=== PATIENT | male | born 1935 | race Caucasian/White ===

== ENCOUNTER 2022-01-13 20:02 | Inpatient (IN) | payer MEDICARE ==
[~2022-01-13] VITALS: Ht 177.8 cm; Wt 81.6 kg
[2022-01-13 22:48] LABS: BASOPHILS ABSOLUTE AUTO 0.09 K/mm3 (0.00-0.23); BASOPHILS PERCENT AUTO 0 % (0-2); EOSINOPHILS ABSOLUTE AUTO 0.05 K/mm3 (0.00-0.68); EOSINOPHILS PERCENT AUTO 0 % (0-6); Hematocrit 40.9 % (37.0-53.0); Hemoglobin 13.7 g/dL (13.5-17.5); IMMATURE GRAN ABSOLUTE AUTO 0.34 K/mm3 (0.00-0.10); IMMATURE GRAN PERCENT AUTO 2 % (0-1); LYMPHOCYTES ABSOLUTE AUTO 1.46 K/mm3 (0.84-5.20); LYMPHOCYTES PERCENT AUTO 7 % (21-46); MONOCYTES ABSOLUTE AUTO 1.36 K/mm3 (0.16-1.47); MONOCYTES PERCENT AUTO 6 % (4-13); Mean Corpuscular HGB 29.3 pg (26.0-34.0); Mean Corpuscular HGB Conc 33.5 g/dL (31.5-36.5); Mean Corpuscular Volume 88 fL (80-100); Mean Platelet Volume 10.4 fL (9.1-12.4); NEUTROPHILS ABSOLUTE AUTO 18.24 K/mm3 (1.96-9.15); NEUTROPHILS PERCENT AUTO 85 % (41-73); Platelet Count 228 K/mm3 (150-400); RDW Coefficient Variation 13.8 % (11.7-14.2); RDW Standard Deviation 44.3 fL (35.1-46.3); Red Blood Cell Count 4.67 M/mm3 (4.30-5.90); White Blood Cell Count 21.54 K/mm3 (4.00-11.30)
[2022-01-13] MEDS ORDERED: HYDACE10B PO (22:57)
[2022-01-13 23:14] LABS: Albumin, Blood 2.2 g/dL (3.4-5.0); Albumin/Globulin Ratio 0.5 (0.8-1.8); Bilirubin, Total 0.7 mg/dL (0.1-1.0); Bun/Creatinine Ratio 32.2 (12.0-20.0); Calcium, Blood 8.4 mg/dL (8.5-10.1); Creatinine, Blood 1.15 mg/dL (0.60-1.20); Globulin, Blood 4.6 g/dL (2.2-4.0); Potassium, Blood 3.3 mmol/L (3.5-5.5); Thyroid Stimulating Hormone 0.465 uIU/mL (0.360-4.800); Total Protein, Blood 6.8 g/dL (6.4-8.2)
[2022-01-14 03:05] LABS: BASOPHILS ABSOLUTE AUTO 0.07 K/mm3 (0.00-0.23); BASOPHILS PERCENT AUTO 0 % (0-2); EOSINOPHILS ABSOLUTE AUTO 0.09 K/mm3 (0.00-0.68); EOSINOPHILS PERCENT AUTO 0 % (0-6); Hematocrit 40.3 % (37.0-53.0); Hemoglobin 13.6 g/dL (13.5-17.5); IMMATURE GRAN PERCENT AUTO 1 % (0-1); LYMPHOCYTES ABSOLUTE AUTO 1.52 K/mm3 (0.84-5.20); LYMPHOCYTES PERCENT AUTO 7 % (21-46); MONOCYTES ABSOLUTE AUTO 1.37 K/mm3 (0.16-1.47); MONOCYTES PERCENT AUTO 7 % (4-13); Mean Corpuscular HGB 29.5 pg (26.0-34.0); Mean Corpuscular HGB Conc 33.7 g/dL (31.5-36.5); Mean Corpuscular Volume 87 fL (80-100); Mean Platelet Volume 10.3 fL (9.1-12.4); NEUTROPHILS ABSOLUTE AUTO 17.48 K/mm3 (1.96-9.15); NEUTROPHILS PERCENT AUTO 84 % (41-73); Platelet Count 237 K/mm3 (150-400); RDW Coefficient Variation 13.8 % (11.7-14.2); RDW Standard Deviation 44.4 fL (35.1-46.3); Red Blood Cell Count 4.61 M/mm3 (4.30-5.90); White Blood Cell Count 20.73 K/mm3 (4.00-11.30)
[2022-01-14 03:22] LABS: Alanine Aminotransfer (ALT/SGP 84 U/L (12-78); Albumin, Blood 2.1 g/dL (3.4-5.0); Albumin/Globulin Ratio 0.5 (0.8-1.8); Alk Phos 75 U/L (50-136); Anion Gap 6 mmol/L (6-16); Aspartate Aminotrans (AST/SGOT 75 U/L (12-37); Bilirubin, Total 0.5 mg/dL (0.1-1.0); Blood Urea Nitrogen 35 mg/dL (8-24); Bun/Creatinine Ratio 31.2 (12.0-20.0); CHOL/HDL RATIO 4.8; CO2, Blood 34 mmol/L (21-32); Calcium, Blood 8.3 mg/dL (8.5-10.1); Chloride, Blood 98 mmol/L (98-108); Cholesterol 72 mg/dL (50-200); Creatinine, Blood 1.12 mg/dL (0.60-1.20); Globulin, Blood 4.3 g/dL (2.2-4.0); Glomerular Filtration Rate >60 (60-); Glucose, Blood 141 mg/dL (70-99); HDL Cholesterol 15 mg/dL (>39); LDL/HDL RATIO 2.8; Low Density Lipoprotein Chol 41 mg/dL (0-110); Potassium, Blood 3.3 mmol/L (3.5-5.5); Sodium, Blood 138 mmol/L (136-145); Total Protein, Blood 6.4 g/dL (6.4-8.2); Triglycerides 78 mg/dL (30-160); Very Low Density Lipoprot Chol 16 mg/dL (6-32)
--- NOTE | 2022-01-14 04:15 | NUR ---
OYSTER CULTURIST SUMMARY PATIENT IS AN ADMISSION OF THE SHIFT. HE IS ALERT AND ORIENTED. HIS V/S WERE DONE NAD RECORDED. MD INFORMED OF PATIENT ARRIVAL. HISS ASSESSMENT DONE AND CHARTED. HE DOES HAVE WOUND IN THE ANAL REGION PICTURES ARE TAKEN. HE IS KEPT COMFORTABLE, AND ORIENTED TO THE UNIT. SAFETY MEASURES IN PLACE. HE DID NOT HAVE ANY COMPLAINTS IVER NIGHT. HE ALSO STATED HE CANN0T REMEMBER THE [id number] HE TAKES AT HOME. CRITICAL RESULTS WERE DOCUMENTED ON., SEE CHART. WILL CONTINUE TO MONITOR HIM.
--- NOTE | 2022-01-14 16:36 | NUR ---
Pt resting in bed upon arrival. Pt's son and spouse at bedside. Pt extremely hard of hearing. Offered supportive listening and answered questions. Reviewed current plan of care. Family expresses appreciation and requests for hospitalist visit if available. Called and spoke with Dr Dickerson. Relayed request. Palliative Care will remain available.
--- NOTE | 2022-01-14 18:33 | NUR ---
SHIFT SUMMARY NO ACUTE CHANGES THIS SHIFT. PT DENIES ANY CP/PRESSURE/PALIPITATIONS. WHEEZES HEARD T/O. PT GETTING PRN BREATHING TREATMENTS. PT A/O BUT VERY DOUGLAS. HEARING AIDE TO R EAR. FAMILY VISITED THE PT TODAY. VSS. WILL REPORT TO PABLITO NOGUEIRA.
--- NOTE | 2022-01-15 03:18 | NUR ---
TELLER MANAGER SUMMARY PATIENT HAD A FAIR SHIFT. HE IS ORIENTED AND ALERT. CALLS FOR HELP APPROPRIATELY. HE DID NOT LODGE ANY COMPLAINTS OVERNIGHT. HIS YESSY;S ARE STABLE. WILL CONTINUE TO MONITOR HIM.
[2022-01-15 04:56] LABS: Hematocrit 42.3 % (37.0-53.0); Hemoglobin 14.2 g/dL (13.5-17.5); Mean Corpuscular HGB 29.5 pg (26.0-34.0); Mean Corpuscular HGB Conc 33.6 g/dL (31.5-36.5); Mean Corpuscular Volume 88 fL (80-100); Mean Platelet Volume 10.4 fL (9.1-12.4); Platelet Count 291 K/mm3 (150-400); RDW Coefficient Variation 14.1 % (11.7-14.2); RDW Standard Deviation 45.5 fL (35.1-46.3); Red Blood Cell Count 4.81 M/mm3 (4.30-5.90); White Blood Cell Count 17.72 K/mm3 (4.00-11.30)
[2022-01-15 05:16] LABS: Alanine Aminotransfer (ALT/SGP 109 U/L (12-78); Albumin, Blood 2.1 g/dL (3.4-5.0); Albumin/Globulin Ratio 0.5 (0.8-1.8); Alk Phos 80 U/L (50-136); Anion Gap 7 mmol/L (6-16); Aspartate Aminotrans (AST/SGOT 90 U/L (12-37); Bilirubin, Total 0.5 mg/dL (0.1-1.0); Blood Urea Nitrogen 25 mg/dL (8-24); CO2, Blood 30 mmol/L (21-32); Calcium, Blood 8.5 mg/dL (8.5-10.1); Chloride, Blood 98 mmol/L (98-108); Globulin, Blood 4.5 g/dL (2.2-4.0); Glomerular Filtration Rate >60 (60-); Glucose, Blood 128 mg/dL (70-99); Potassium, Blood 3.4 mmol/L (3.5-5.5); Sodium, Blood 135 mmol/L (136-145); Total Protein, Blood 6.6 g/dL (6.4-8.2)
--- NOTE | 2022-01-15 09:05 | NUR ---
22 G L HAND IV SITE ACCESSED AND ASSESSED. SEE ASSESSMENT. WNL.
--- NOTE | 2022-01-15 17:07 | NUR ---
SHIFT SUMMARY: PT A/O X 4 STANDBY ASSIST WITH WALKER AND GAIT BELT TO BATHROOM. PT [place]. PLEASANT AND COOPERATIVE WITH CARES. PT COMPLIANT WITH FLUID RESTRICTION. PT NAPPED ON AND OFF THROUGH OUT THE DAY BUT EASILY AWOKE FOR CARES. PT HAD FAMILY VISITING T/OUT THE DAY. PT HAD NON PRODUCTIVE COUGH WITH WHEEZING AT TIMES. BREATHING TX DID HELP WITH WHEEZING. PT O2 LEVEL TITRATED DOWN TO 4 LPM VIA NC.
--- NOTE | 2022-01-16 01:35 | NUR ---
MACHINE SHOP INSPECTOR SUMMARY PATIENT HAD A FAIR SHIFT. HE IS A&O, HE IS VERY HARD OF HEARING. ASSESSMENT DONE AND RECORDED. STILL HAVING A MOIST NON PRODUCTIVE COUGH. GOT HIS SCHEDULED COUGH MED. NO COMPLAINTS LODGED OVER NIGHT. V/S ARE STABLE. WILL CONTINUE TO MONITOR HIM.
[2022-01-16 04:46] LABS: Hematocrit 45.2 % (37.0-53.0); Hemoglobin 14.7 g/dL (13.5-17.5); Mean Corpuscular HGB 29.3 pg (26.0-34.0); Mean Corpuscular HGB Conc 32.5 g/dL (31.5-36.5); Mean Corpuscular Volume 90 fL (80-100); Mean Platelet Volume 10.3 fL (9.1-12.4); Platelet Count 324 K/mm3 (150-400); RDW Coefficient Variation 14.3 % (11.7-14.2); RDW Standard Deviation 47.3 fL (35.1-46.3); Red Blood Cell Count 5.02 M/mm3 (4.30-5.90); White Blood Cell Count 19.58 K/mm3 (4.00-11.30)
[2022-01-16 05:05] LABS: Alanine Aminotransfer (ALT/SGP 112 U/L (12-78); Albumin, Blood 2.2 g/dL (3.4-5.0); Albumin/Globulin Ratio 0.4 (0.8-1.8); Alk Phos 86 U/L (50-136); Anion Gap 8 mmol/L (6-16); Aspartate Aminotrans (AST/SGOT 69 U/L (12-37); Bilirubin, Total 0.5 mg/dL (0.1-1.0); Blood Urea Nitrogen 22 mg/dL (8-24); Bun/Creatinine Ratio 24.9 (12.0-20.0); CO2, Blood 31 mmol/L (21-32); Calcium, Blood 8.6 mg/dL (8.5-10.1); Chloride, Blood 96 mmol/L (98-108); Creatinine, Blood 0.89 mg/dL (0.60-1.20); Globulin, Blood 5.1 g/dL (2.2-4.0); Glomerular Filtration Rate >60 (60-); Glucose, Blood 123 mg/dL (70-99); Potassium, Blood 3.7 mmol/L (3.5-5.5); Sodium, Blood 135 mmol/L (136-145); Total Protein, Blood 7.3 g/dL (6.4-8.2)
--- NOTE | 2022-01-17 01:13 | NUR ---
FURNACE MAINTENANCE SUMMARY PATIENT HAD A FAIR SHIFT. HE IS ALERT [place] ORIENTED AND ABLE TO MAKE HIS NEEDS KNOWN. ASSESSMENT DONE AND RECORDED. NO COMPLAINTS OVERNIGHT. WILL CONTINUE TO MONITOR HIM. VITALS ARE CHECKED AND DOCUMENTED.
[2022-01-17 04:34] LABS: Hematocrit 43.8 % (37.0-53.0); Hemoglobin 14.5 g/dL (13.5-17.5); Mean Corpuscular HGB 29.4 pg (26.0-34.0); Mean Corpuscular HGB Conc 33.1 g/dL (31.5-36.5); Mean Corpuscular Volume 89 fL (80-100); Mean Platelet Volume 10.1 fL (9.1-12.4); Platelet Count 340 K/mm3 (150-400); RDW Coefficient Variation 14.3 % (11.7-14.2); RDW Standard Deviation 46.5 fL (35.1-46.3); Red Blood Cell Count 4.93 M/mm3 (4.30-5.90); White Blood Cell Count 19.23 K/mm3 (4.00-11.30)
[2022-01-17 04:50] LABS: Anion Gap 6 mmol/L (6-16); Blood Urea Nitrogen 18 mg/dL (8-24); Bun/Creatinine Ratio 19.7 (12.0-20.0); CO2, Blood 32 mmol/L (21-32); Calcium, Blood 9.1 mg/dL (8.5-10.1); Chloride, Blood 96 mmol/L (98-108); Creatinine, Blood 0.92 mg/dL (0.60-1.20); Glomerular Filtration Rate >60 (60-); Glucose, Blood 123 mg/dL (70-99); Potassium, Blood 4.1 mmol/L (3.5-5.5); Sodium, Blood 134 mmol/L (136-145)
--- NOTE | 2022-01-17 13:59 | NUR ---
PATIENT DISCHARGED HOME TODAY W/ HOME OXYGEN. [facility] CAME WITH PORTABLE TANK. DISCHARGE TEACHING PROVIDED, PATIENT/FAMILY VERBILIZED UNDERSTANDING. VITALS STABLE, SATS STABLE ON 3L OXYGEN. IV REMOVED.
== END 2022-01-17 12:47 | disposition home or self-care (01) | DRG 177 ==
LOC: MEDS 20:02
PROVIDERS: Internal Medicine; ADMIT Internal Medicine
DX: J69.0 Pneumonitis due to inhalation of food and vomit (principal); J96.01 Acute respiratory failure with hypoxia; Z28.21 Immunization not carried out because of patient refusal; I11.0 Hypertensive heart disease with heart failure; J44.9 Chronic obstructive pulmonary disease, unspecified; N40.0 Benign prostatic hyperplasia without lower urinary tract symptoms; R91.1 Solitary pulmonary nodule; I50.9 Heart failure, unspecified; I48.91 Unspecified atrial fibrillation; Z87.891 Personal history of nicotine dependence; Z79.899 Other long term (current) drug therapy
CPT/HCPCS: 36415; 71045; 71260; 74177; 80048; 80053; 80061; 82947; 83036; 83880; 84145; 84443; 84484; 85025; 85027; 93306; 94640; 94761; 94762; 97116; 97162; 97530; A9270; J0696; J1644; J1650; Q9967